=== PATIENT | male | born 1975 | race Caucasian/White ===

== ENCOUNTER 2019-04-27 21:48 | Emergency (ER) | payer MEDICAID ==
[2019-04-27] MEDS ORDERED: KETOROLAC 30 MG/ML VIAL IVP ONE (21:56)
--- NOTE | 2019-04-27 21:56 | Emergency Department Record ---
History of Present Illness - General Chief Complaint: Chest Pain Stated Complaint: CHEST PAIN Time Seen by Provider: 04/27/19 21:51 Source: Patient Mode of Arrival: Ambulatory Limitations: No limitations - History of Present Illness Initial Comments: 43 yo male presents with left sided chest pain that started about 30 minutes ago at rest and resolved. He does not have a history of similar pain. He has been coughing for nearly two weeks and has pain over the left ribs. He is a smoker. No history of cardiopulmonary disease. He denies asthma history. The area below his left breast hurts with moving or coughing. The sputum he has is small amounts. He has not had any blood in the sputum. He denies a history of blood clots. MD Complaint: Chest pain, Other (Cough for 2 weeks) Onset: Other (with coughing) Pain Location: Left chest Pain Radiation: None Severity: Moderate Quality: Sharp Consistency: Intermittent Improves With: Remaining still Worsens With: Other (worse with cough) Context: Recent illness (cough 2 weeks) Anginal Symptoms: Other (cough) Other Symptoms: Cough Treatments Prior to Arrival: None - Related Data Home Medications Medication Instructions Recorded Confirmed Last Taken Atorvastatin Calcium 20 mg PO DAILY 04/27/19 04/27/19 04/27/19 Benztropine Mesylate 1 tab PO QHS 04/27/19 04/27/19 04/27/19 Clozapine [Clozaril] 100 mg PO [facility] 04/27/19 04/27/19 04/27/19 Divalproex Sodium [Depakote] 1 tab PO QHS 04/27/19 04/27/19 04/27/19 Divalproex Sodium [Divalproex 250 mg PO [facility] 04/27/19 04/27/19 04/27/19 Sodium ER] Levothyroxine Sodium 1 tab PO DAILY 04/27/19 04/27/19 04/27/19 Beecher Carbonate [Beecher 450 mg PO QHS 04/27/19 04/27/19 04/27/19 Carbonate ER] Metformin HCl 500 mg PO BID 04/27/19 04/27/19 04/27/19 Metoprolol Succinate 100 mg PO DAILY 04/27/19 04/27/19 04/27/19 Omeprazole 20 mg PO DAILY 04/27/19 04/27/19 04/27/19 Quetiapine Fumarate [Quetiapine 2 tab PO QHS 04/27/19 04/27/19 04/27/19 Fumarate ER] Previous Rx's Medication Instructions Recorded Azithromycin [Zithromax] 250 mg PO DAILY #4 tablet 04/28/19 Benzonatate [Tessalon Perle] 100 mg PO Q6H #16 capsule 04/28/19 Allergies Allergy/AdvReac Type Severity Reaction Status Date / Time No Known Drug Allergies Allergy Verified 04/27/19 22:29 Review of Systems Constitutional: Denies: Chills, Fever, Night sweats, Weakness Eyes: Denies: Eye discharge, Eye pain ENT: Denies: Congestion, Ear pain, Epistaxis Respiratory: Reports: As per HPI, Cough. Denies: Dyspnea, Hemoptysis, Stridor, Wheezes Cardiovascular: Reports: As per HPI, Chest pain. Denies: Palpitations, Syncope Endocrine: Denies: Fatigue, Polydipsia, Polyuria Gastrointestinal: Denies: Abdominal pain, Diarrhea, Nausea, Vomiting Genitourinary: Denies: Dysuria, Frequency, Hematuria Musculoskeletal: Denies: Arthralgia, Back pain, Joint swelling, Myalgia, Neck pa in Skin: Denies: Bruising, Change in color, Rash Neurological: Denies: Headache Psychiatric: Denies: Anxiety Hematological/Lymphatic: Denies: Easy bleeding, Easy bruising Physical Exam - General General Appearance: Alert, Oriented x3, Cooperative, No acute distress Limitations: No limitations - Head Head exam: Atraumatic, Normal inspection - Eye Eye exam: Normal appearance, PERRL. negative: Conjunctival injection, Scleral icterus - ENT ENT exam: Normal exam, Mucous membranes moist Ear exam: Normal external inspection Nasal Exam: Normal inspection Mouth exam: Normal external inspection - Neck Neck exam: Normal inspection - Respiratory Respiratory exam: Normal lung sounds bilaterally, Chest wall tenderness (left chest anterior under left nipple about 5cm). negative: Accessory muscle use, Prolonged expiratory, Respiratory distress, Rhonchi, Stridor, Wheezes - Cardiovascular Cardiovascular Exam: Regular rate, Normal rhythm, Normal heart sounds. negative: Diastolic murmur, Systolic murmur, Tachycardia Peripheral Pulses: 2+: Radial (R), Radial (L) - GI/Abdominal GI/Abdominal exam: Soft. negative: Distended, Guarding, Tenderness - Rectal Rectal exam: Deferred - exam: Deferred - Back Back exam: Reports: Normal inspection. Denies: CVA tenderness (R), CVA tenderness (L) - Neurological Neurological exam: Alert, Oriented X3 - Psychiatric Psychiatric exam: Normal affect, Normal mood - Skin Skin exam: Dry, Intact, Normal color, Warm Course - Reevaluation(s) Reevaluation #1: 04/27/19 21:59 EKG #1: 21:45 Rate: 78 Rhythm: sinus [place]: normal Intervals: normal ST segments: normal Prior: none 04/27/19 22:54 The labs were reviewed No significant abnormalities on the CBC,CMP or Troponin. 04/28/19 00:01 The patient continues to rest comfortably. The pain is much better after the Toradol. It does come and go with cough or position changes but tolerable. 04/28/19 01:28 Repeat Troponin is normal The patient will be discharged on Tessalon and Zithromax for his two weeks of productive cough His examination and symptoms are most consistent with chest wall/rib pain with the coughing. We discussed the results, home care, and reasons to return to the ED for a recheck if any concerns or not better 04/28/19 01:38 97 % on room air resting comfortably. Medical Decision Making - Lab Data Result diagrams: 04/27/19 22:20 04/27/19 22:20 Disposition Disposition: Discharge Clinical Impression: Cough, Chest wall pain Disposition: Home, Self-Care Condition: (1) Good Instructions: Chest Pain (ED), Acute Bronchitis (ED) Additional Instructions: Call your doctor for the next available follow up appointment Review this ER visit and the tests performed with your family doctor Return to the ER for a recheck if worse, any new concerns or questions Take the prescriptions provided as directed for the cough Prescriptions: Benzonatate [Tessalon Perle] 100 mg PO Q6H #16 capsule Azithromycin [Zithromax] 250 mg PO DAILY #4 tablet Forms: Patient Portal Access Time of Disposition: 01:20 Quality - Quality Measures Quality Measures: N/A - Blood Pressure Screening Does Patient Have Any of the Following: No Blood Pressure Classification: Normal BP Reading Systolic Measurement: 115 Diastolic Measurement: 77 Screening for High Blood Pressure: < Normal BP, F/U Not Required > [G8783]
[2019-04-27] MEDS ORDERED: ASPIRIN 81 MG CHEWABLE TABLET PO ONE (21:57)
[2019-04-27 22:26] LABS: ABSOLUTE NEUTROPHIL COUNT 4.57; HEMATOCRIT 40.6 % (42.0-52.0); MEAN CELL VOLUME 89.8 fl (81-97); MEAN PLATELET VOLUME 10.4 fl (7.4-10.4); PLATELET COUNT 193 K/uL (130-400); RED BLOOD COUNT 4.52 M/uL (4.40-5.70); RED CELL DISTRIBUTION WIDTH 14.7 % (11.5-14.5)
[2019-04-27 22:31] LABS: MEAN CORPUSCULAR HEMOGLOBIN 28.7 pg (27-33)
[2019-04-27 22:39] LABS: BLOOD UREA NITROGEN 18 mg/dL (6-20); PARTIAL THROMBOPLASTIN TIME 27.8 SECONDS (24.5-39.1); PROTHROMBIN TIME (PATIENT) 10.2 SECONDS (9.5-12.1)
[2019-04-27 22:40] LABS: CREATININE 0.9 mg/dL (0.7-1.2); EST GLOMERULAR FILTRATION RATE > 60 mL/min; TOTAL PROTEIN 7.8 g/dL (6.6-8.7)
[2019-04-27 22:42] LABS: GLUCOSE,RANDOM 187 mg/dL (74-109)
[2019-04-27 22:45] LABS: ALB/GLOB RATIO 1.2 (1.1-1.8); ALBUMIN 4.2 g/dL (4.0-5.0); ALKALINE PHOSPHATASE 71 U/L (40-129); ALT/SGPT 10 U/L (<41); AST/SGOT 12 U/L (10.0-50.0)
[2019-04-27] MEDS ORDERED: BENZONATATE 100 MG CAPSULE PO ONE (23:01)
[2019-04-27] MEDS ORDERED: AZITHROMYCIN 500 MG TABLET PO ONE (23:01)
--- NOTE | 2019-04-29 07:32 | RADIOLOGY REPORT ---
EXAM: CHEST, TWO VIEWS HISTORY: CHEST/RIB PAIN. COUGH. TECHNIQUE: Upright PA and lateral views of the chest were obtained. Comparison: None. FINDINGS: The lung volumes are low. Minor linear scarring versus atelectasis in the lateral left lung base. The lungs and pleural spaces are otherwise clear. The heart is not enlarged and the pulmonary vasculature is nondilated. No acute osseous abnormality is identified. IMPRESSION: MINOR LINEAR SCARRING VERSUS ATELECTASIS IN THE LATERAL LEFT LUNG BASE. NO CONVINCING EVIDENCE OF ACUTE CARDIOPULMONARY DISEASE. JOB NUMBER: [id number] [facility]
== END 2019-04-28 02:03 | disposition home or self-care (01) ==
LOC: ER 21:48
DX: R07.89 Other chest pain (principal); R05 Cough; F17.210 Nicotine dependence, cigarettes, uncomplicated
CPT/HCPCS: 71046; 80053; 84484; 85027; 85610; 85730; 93005; 93010; 96374; 99284; J1885